=== PATIENT | female | born 1985 | race Two or more races ===

== ENCOUNTER 2018-07-21 11:52 | Emergency (ER) | payer MEDICAID ==
[~2018-07-21] VITALS: Ht 160 cm; Wt 63.5 kg
[2018-07-21 13:46] VITALS: BP 117/80
== END 2018-07-21 14:59 | disposition home or self-care (01) ==
LOC: ER 11:52
DX: S80.861A Insect bite (nonvenomous), right lower leg, initial encounter (principal); R51 Headache; F17.210 Nicotine dependence, cigarettes, uncomplicated; F12.10 Cannabis abuse, uncomplicated; W57.XXXA Bitten or stung by nonvenomous insect and other nonvenomous arthropods, initial encounter; Y93.89 Activity, other specified; Y92.89 Other specified places as the place of occurrence of the external cause; Y99.8 Other external cause status

== ENCOUNTER 2018-07-28 11:20 | Emergency (ER) | payer MEDICAID ==
[~2018-07-28] VITALS: Ht 160 cm; Wt 63.5 kg
[2018-07-28 12:11] VITALS: BP 134/89
== END 2018-07-28 12:48 | disposition home or self-care (01) ==
LOC: ER 11:20
DX: Z48.01 Encounter for change or removal of surgical wound dressing (principal); R21 Rash and other nonspecific skin eruption; F17.210 Nicotine dependence, cigarettes, uncomplicated; F12.10 Cannabis abuse, uncomplicated; F10.10 Alcohol abuse, uncomplicated; Z98.51 Tubal ligation status